=== PATIENT | female | born 2000 | race African-American/Black ===

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

== ENCOUNTER 2018-12-02 19:04 | Emergency (ER) | payer OTHER ==
[2018-12-02 19:16] VITALS: BP 138/95
--- NOTE | 2018-12-02 19:50 | UC ---
UC General HPI - HPI Summary HPI Summary: PATIENT TRAVELED 5 HOURS BY BUS TO [facility] 4 DAYS AGO AND THEN ANOTHER 5 HOURS ON THE BUS TO COME BACK THE NEXT DAY. AFTER THAT SHE DEVELOPED NUMBNESS AND TINGLING SENSATION IN HER BILATERAL FEET. SHE NOW REPORTS NUMBNESS AND TINGLING IN HER LOWER BODY FROM HER WAIST DOWN. SHE DENIES ANY DISTINCT SADDLE ANESTHESIA. NO LOSS OF BOWEL OR BLADDER CONTROL. SHE STATES IT IS GETTING HARDER FOR HER TO MOVE HER LEGS. THEY FEEL HEAVY AND IT IS STARTING TO AFFECT HER GAIT. SHE DENIES ANY TRAUMA. NO PREVIOUS HISTORY OF BACK INJURY. NO SWELLING. - History of Current Complaint Chief Complaint: UCLowerExtremity Stated Complaint: AKIN FEELING IN LEGS Time Seen by Provider: 12/02/18 19:27 Hx Obtained From: Patient Hx Last Menstrual Period: <1 WEEK AGO Onset/Duration: Gradual Onset, Lasting Days, Still Present Timing: Constant Onset Severity: Moderate Current Severity: Moderate Pain Intensity: 3 Associated Signs & Symptoms: Positive: Weakness. Negative: Back Pain, Dizziness , Fever, Immunocompromised, Nausea, Trauma - Allergy/Home Medications Allergies/Adverse Reactions: Allergies Allergy/AdvReac Type Severity Reaction Status Date / Time No Known Allergies Allergy Verified 12/02/18 19:16 Home Medications: Home Medications Levonorgestrel (Iud) [Mirena IUD] 12/02/18 [History] PMH/Surg Hx/FS Hx/Imm Hx Respiratory History: Asthma - Surgical History Surgical History: None - Family History Known Family History: Negative: Other - NO JOINT LAXITY - Social History Alcohol Use: None Substance Use Type: None Smoking Status (MU): Never Smoked Tobacco Review of Systems All Other Systems Reviewed And Are Negative: Yes Constitutional: Positive: Negative Skin: Positive: Negative Respiratory: Positive: Negative Cardiovascular: Positive: Negative Gastrointestinal: Positive: Negative Neurovascular: Positive: Decreased Sensation Neurological: Positive: Paresthesia Physical Exam Triage Information Reviewed: Yes Appearance: Well-Appearing, No Pain Distress, Well-Nourished Vital Signs: Initial Vital Signs Temp 98.3 F 12/02/18 19:12 Pulse 74 12/02/18 19:12 Resp 16 12/02/18 19:12 BP 138/95 12/02/18 19:12 Pulse Ox 100 12/02/18 19:12 Vital Signs Reviewed: Yes Eyes: Positive: Conjunctiva Clear ENT: Positive: Hearing grossly normal Neck: Positive: Supple Respiratory: Positive: No respiratory distress, No accessory muscle use Cardiovascular: Positive: Pulses Normal Abdomen Description: Positive: Soft Musculoskeletal: Positive: ROM Intact, No Edema Neurological: Positive: Alert, Muscle Tone Normal, Other: - CN II-XII GROSSLY INTACT BILATERALLY. RAPID ALTERNATING MOVEMENTS INTACT. NEG PRONATOR DRIFT. NEG ROMBERG. 5/5 STRENGTH. HEEL TO SHANNON INTACT BILATERALLY. TANDEM GAIT SHAKY BUT INTACT. FINGER TO NOSE INTACT. Psychological: Positive: Age Appropriate Behavior Skin: Negative: Rashes Course/Dx - Course Course Of Treatment: Patient with grossly normal neuro exam but complaining of worsening paresthesias in her lower body from the waist down. States she is having a progressively harder time moving her legs and that they feel heavy and it is affecting her gait. No saddle anesthesia or loss of bowel or bladder control. No trauma. Unable to evaluate this in the urgent care so will send to the ER for further evaluation. - Diagnoses Provider Diagnosis: Paresthesia Discharge - Sign-Out/Discharge Documenting (check all that apply): Patient Departure All imaging exams completed and their final reports reviewed: No Studies - Discharge Plan Condition: Stable Disposition: HOME Patient Education Materials: Paresthesia (ED) Referrals: [facility] [Provider Group] Additional Instructions: GO DIRECTLY TO THE [facility] FROM HERE FOR FURTHER EVALUATION. YOU HAVE DECLINED TRANSFER TO THE ED BY AMBULANCE. BE ADVISED THAT BY NOT TRAVELING IN A MONITORED SETTING YOU COULD BE RISKING WORSENING OF YOUR CONDITION THAT COULD POSE A THREAT TO YOUR LIFE, HEALTH AND MEDICAL SAFETY. - Billing Disposition and Condition Condition: STABLE Disposition: Home
== END 2018-12-02 19:47 | disposition home or self-care (01) ==
LOC: UCEAST 19:04
DX: R20.0 Anesthesia of skin (principal); Z97.5 Presence of (intrauterine) contraceptive device
CPT/HCPCS: 99212; G0463

== ENCOUNTER → 2018-12-02 20:06 | Emergency (ER) | payer OTHER ==
[2018-12-02 20:12] VITALS: BP 137/67
--- NOTE | 2018-12-02 22:06 | ED ---
Lower Extremity - HPI Summary HPI Summary: Patient complains of progressive numbness and tingling in bilateral lower extremities 3 days. Numbness and feeling started and bilateral feet and has proceeded up to her hips bilaterally, also complains of some heaviness to bilateral lower extremities. Patient also states she did travel by bus to [facility] 4 days ago which is a 4 hour trip, and then return to the next day for same 4 hour trip. Patient has taken this trip several times before without incident. Denies trauma, back pain, fever, cough, sore throat, CP, SOB, N/V/D, abdominal pain, change in urine, change in BM. Medical history is asthma. - History of Current Complaint Chief Complaint: EDGeneral Stated Complaint: LOWER BODY NUMBNESS PER PT Time Seen by Provider: 12/02/18 21:05 Hx Obtained From: Patient Hx Last Menstrual Period: <1 WEEK AGO Mechanism Of Injury: Unknown Onset of Pain: Immediate, Days Onset/Duration: Days Severity Initially: Mild Severity Currently: Mild Pain Intensity: 3 Pain Scale Used: 0-10 Numeric Timing: Constant Location: Is Diffuse Character Of Pain: Dull Associated Signs And Symptoms: Positive: Negative Aggravating Factor(s): Ambulation Alleviating Factor(s): Nothing Able to Bear Weight: Yes - Allergies/Home Medications Allergies/Adverse Reactions: Allergies Allergy/AdvReac Type Severity Reaction Status Date / Time No Known Allergies Allergy Verified 12/02/18 20:11 PMH/Surg Hx/FS Hx/Imm Hx Endocrine/Hematology History: Denies: Hx Anticoagulant Therapy Cardiovascular History: Denies: Hx Pacemaker/ICD Respiratory History: Reports: Hx Asthma History: Denies: Hx Dialysis Sensory History: Denies: Hx Legally Blind Opthamlomology History: Denies: Hx Eye Prosthesis EENT History: Denies: Hx Deafness Neurological History: Denies: Hx Dementia Psychiatric History: Denies: Hx Autism Infectious Disease History: No Infectious Disease History: Denies: Traveled Outside the [place] in Last 30 Days - Family History Known Family History: Negative: Other - NO JOINT LAXITY - Social History Alcohol Use: None Substance Use Type: Reports: None Smoking Status (MU): Never Smoked Tobacco Review of Systems Constitutional: Negative Eyes: Negative ENT: Negative Cardiovascular: Negative Respiratory: Negative Gastrointestinal: Negative Genitourinary: Negative Musculoskeletal: Negative Skin: Negative Neurological: Negative Positive: Paresthesia Psychological: Normal All Other Systems Reviewed And Are Negative: Yes Physical Exam - Summary Physical Exam Summary: Neuro exam normal. No ecchymosis, erythema, deformity, swelling noted to bilateral lower extremity. Full range of motion of all joints of bilateral leg lower extremities. Pulses intact distally bilaterally. Reflexes at knees and ankles intact bilaterally. No pain with palpation of bilateral lower extremities. No gait abnormality when walking with eyes closed or opened. Normal strength with flexion and extension of bilateral knees and ankles. Triage Information Reviewed: Yes Vital Signs On Initial Exam: Initial Vitals Temp Pulse Resp BP Pulse Ox 98.3 F 80 16 137/67 97 12/02/18 20:08 12/02/18 20:08 12/02/18 20:08 12/02/18 20:08 12/02/18 20:08 Vital Signs Reviewed: Yes Appearance: Positive: Well-Appearing Skin: Positive: Warm Head/Face: Positive: Normal Head/Face Inspection Eyes: Positive: Normal Neck: Positive: Supple Respiratory/Lung Sounds: Positive: Clear to Auscultation Cardiovascular: Positive: Normal Abdomen Description: Positive: Nontender Musculoskeletal: Positive: Normal Neurological: Positive: Normal Psychiatric: Positive: Normal AVPU Assessment: Alert - Olga Coma Scale Best Eye Response: 4 - Spontaneous Best Motor Response: 6 - Obeys Commands Best Verbal Response: 5 - Oriented Coma Scale Total: 15 Diagnostics - Vital Signs Vital Signs Temp Pulse Resp BP Pulse Ox 12/02/18 20:08 98.3 F 80 16 137/67 97 - Laboratory Lab Statement: Any lab studies that have been ordered have been reviewed, and results considered in the medical decision making process. Lower Extremity Course/Dx - Course Course Of Treatment: Patient complains of progressive numbness and tingling in bilateral lower extremities 3 days. Numbness and feeling started and bilateral feet and has proceeded up to her hips bilaterally, also complains of some heaviness to bilateral lower extremities. Patient also states she did travel by bus to [facility] 4 days ago which is a 4 hour trip, and then return to the next day for same 4 hour trip. Patient has taken this trip several times before without incident. Denies trauma, back pain, fever, cough, sore throat, CP, SOB, N/V/D, abdominal pain, change in urine, change in BM. Medical history is asthma. Physical exam:Neuro exam normal. No ecchymosis, erythema, deformity, swelling noted to bilateral lower extremity. Full range of motion of all joints of bilateral leg lower extremities. Pulses intact distally bilaterally. Reflexes at knees and ankles intact bilaterally. No pain with palpation of bilateral lower extremities. No gait abnormality when walking with eyes closed or opened. Normal strength with flexion and extension of bilateral knees and ankles. Vital signs within normal limits. No recent illness. Advised patient to return for any development of weakness in bilateral lower extremities, and also to follow-up with neurology for nerve conduction tests. Patient understands and approves of the plan. - Diagnoses Provider Diagnoses: Paresthesia Discharge - Sign-Out/Discharge Documenting (check all that apply): Patient Departure Patient Received Moderate/Deep Sedation with Procedure: No - Discharge Plan Condition: Stable Disposition: HOME Referrals: No Primary Care Phys,NOPCP [Primary Care Provider] - Edi Matias MD [Medical Doctor] - Additional Instructions: If symptoms continue follow-up with neurology Dr. Matias for further evaluation. Return to the ED for any new or worsening symptoms - Billing Disposition and Condition Condition: STABLE Disposition: Home
== END | disposition home or self-care (01) ==
LOC: ED 20:06
DX: R20.2 Paresthesia of skin (principal)
CPT/HCPCS: 99281